=== PATIENT | female | born 2000 | race Caucasian/White ===

== ENCOUNTER → 2023-08-16 07:34 | Outpatient (REF) | payer OTHER, SELFPAY | LOC: PNTC 07:34 | PROVIDERS: ATTENDING PHYSICIAN Obstetrics & Gynecology | DX: O36.5990 Maternal care for other known or suspected poor fetal growth, unspecified trimester, not applicable or unspecified (principal); Q92 Other trisomies and partial trisomies of the autosomes, not elsewhere classified | CPT/HCPCS: 59025; 76818; 76820 ==

== ENCOUNTER → 2023-08-23 08:01 | Outpatient (REF) | payer OTHER, SELFPAY | LOC: PNTC 08:01 | PROVIDERS: ATTENDING PHYSICIAN Obstetrics & Gynecology | DX: Z36.0 Encounter for antenatal screening for chromosomal anomalies (principal) | CPT/HCPCS: 59025; 76816; 93976 ==

== ENCOUNTER → 2023-08-30 08:08 | Outpatient (REF) | payer OTHER, SELFPAY | LOC: PNTC 08:08 | PROVIDERS: ATTENDING PHYSICIAN Obstetrics & Gynecology | DX: Z36.0 Encounter for antenatal screening for chromosomal anomalies (principal); Z36.9 Encounter for antenatal screening, unspecified | CPT/HCPCS: 59025; 76815; 76820 ==

== ENCOUNTER → 2023-09-06 08:06 | Outpatient (REF) | payer OTHER, SELFPAY | LOC: PNTC 08:06 | PROVIDERS: ATTENDING PHYSICIAN Obstetrics & Gynecology | DX: O36.5990 Maternal care for other known or suspected poor fetal growth, unspecified trimester, not applicable or unspecified (principal); O99.210 Obesity complicating pregnancy, unspecified trimester | CPT/HCPCS: 59025; 76815; 76820 ==

== ENCOUNTER → 2023-09-13 08:04 | Outpatient (REF) | payer OTHER, SELFPAY | LOC: PNTC 08:04 | PROVIDERS: ATTENDING PHYSICIAN Obstetrics & Gynecology | DX: O30.039 Twin pregnancy, monochorionic/diamniotic, unspecified trimester (principal) | CPT/HCPCS: 59025; 76816; 76820 ==

== ENCOUNTER → 2023-09-20 08:05 | Outpatient (REF) | payer OTHER, SELFPAY | LOC: PNTC 08:05 | PROVIDERS: ATTENDING PHYSICIAN Obstetrics & Gynecology | DX: O99.210 Obesity complicating pregnancy, unspecified trimester (principal); O36.5990 Maternal care for other known or suspected poor fetal growth, unspecified trimester, not applicable or unspecified | CPT/HCPCS: 59025; 76815; 76820 ==

== ENCOUNTER → 2023-09-27 08:06 | Outpatient (REF) | payer OTHER, SELFPAY | LOC: PNTC 08:06 | PROVIDERS: ATTENDING PHYSICIAN Obstetrics & Gynecology | DX: O99.210 Obesity complicating pregnancy, unspecified trimester (principal); O36.5990 Maternal care for other known or suspected poor fetal growth, unspecified trimester, not applicable or unspecified; O36.8310 Maternal care for abnormalities of the fetal heart rate or rhythm, first trimester, not applicable or unspecified | CPT/HCPCS: 59025; 76816; 76820 ==

== ENCOUNTER → 2023-10-04 08:07 | Outpatient (REF) | payer OTHER, SELFPAY | LOC: PNTC 08:07 | PROVIDERS: ATTENDING PHYSICIAN Obstetrics & Gynecology | DX: O99.210 Obesity complicating pregnancy, unspecified trimester (principal); O36.5990 Maternal care for other known or suspected poor fetal growth, unspecified trimester, not applicable or unspecified | CPT/HCPCS: 59025; 76815; 76820 ==

== ENCOUNTER → 2023-10-11 08:07 | Outpatient (REF) | payer OTHER, SELFPAY | LOC: PNTC 08:07 | PROVIDERS: ATTENDING PHYSICIAN Obstetrics & Gynecology | DX: O36.5990 Maternal care for other known or suspected poor fetal growth, unspecified trimester, not applicable or unspecified (principal); O99.210 Obesity complicating pregnancy, unspecified trimester; O36.8310 Maternal care for abnormalities of the fetal heart rate or rhythm, first trimester, not applicable or unspecified | CPT/HCPCS: 59025; 76816; 76820 ==

== ENCOUNTER 2023-10-16 19:10 | Inpatient (IN) | payer OTHER, SELFPAY ==
[2023-10-16 19:40] VITALS: BMI 38.4
[2023-10-16 19:43] VITALS: BP 124/77
[2023-10-16 20:24] LABS: % Basophils 0.8 % (0-2); % Eosinophils 0.5 % (0-6); % Lymphocytes 24.9 % (20.5-51.1); % Monocytes 5.9 % (1.7-9.3); % Neutrophils 66.9 % (42.2-75.2); Absolute Basophils 0.1 10^3/uL (0-0.2); Absolute Eosinophils 0.1 10^3/uL (0-0.7); Absolute Immature Granulocytes 0.1 10^3/uL (0-0.05); Absolute Lymphocytes 3.1 10^3/uL (1.2-3.4); Absolute Monocytes 0.7 10^3/uL (0.1-0.6); Absolute Neutrophils 8.3 10^3/uL (1.4-6.5); Hematocrit 40.4 % (37.0-47.0); Hemoglobin 14.4 g/dL (12.0-16.0); Mean Corp Hgb Conc. 35.6 g/dL (33.0-37.0); Mean Corpuscular Hgb 31.6 pg (27.0-31.0); Mean Corpuscular Volume 88.6 fL (81.0-99.0); Mean Platelet Volume 10.5 fL (7.4-10.4); Nucleated Red Blood Cells % 0 %; Platelet Count 275 10^3/uL (130-400); Red Blood Cell Count 4.56 10^6/uL (4.20-5.40); Red Cell Dist. Width 13.8 % (11.5-14.5); White Blood Cell Count 12.4 10^3/uL (4.8-10.8)
[2023-10-16] MEDS: CYTOTEC 25 MICROGRAM VAG (20:26)
[2023-10-17] MEDS: CYTOTEC 50 MICROGRAM PO ×5 (00:28→23:34)
[2023-10-17] MEDS: CYTOTEC PO (04:46)
[2023-10-17] MEDS: BRETHINE 250 MCG SC (05:12)
[2023-10-17] MEDS: LR 1000 IV (19:22)
[2023-10-17] MEDS: MORPHINE SULFATE 2 MG IV (22:28)
[2023-10-18] MEDS: MORPHINE SULFATE 2 MG IV ×2 (02:39→04:16)
[2023-10-18] MEDS: PITOCIN 30 UNITS/NSS 500 ML IV (04:16)
[2023-10-18] MEDS: FENTANYL/BUPIVACAINE 100 EPIDURAL (06:13)
[2023-10-18] MEDS: SUBLIMAZE 100 MCG EPIDURAL (06:13)
[2023-10-18] MEDS: TYLENOL 1000 MG PO (11:54)
[2023-10-18] MEDS: BICITRA 30 ML PO (11:54)
[2023-10-18] MEDS: ZITHROMAX INFUSION 250 IV (11:56)
--- NOTE | 2023-10-18 13:31 | W.IMMPOSTOP ---
Surgical Immed Post Op Note
-
Primary Surgeon: Yesica Kwon DO
Assisting Surgeon: Sommer Zavaleta RN
Pre-op Diagnosis: IUP at 37+3wks, intolerance of labor, IUGR, +NIPS Trisomy 16
Post-op Diagnosis: Same as above
Procedure Performed: PLTCS
Anesthesia Type: epidural
Specimen / Cultures: placenta, cord gases, chromosome analysis POC (from placenta/cord tissue), cord blood for chromosome testing (2 tubes)
Estimated Blood Loss: 770ml
Complications: none
Operative Findings: female infant LOT, no nuchal cord, weight 3 lbs 9oz, Apgars 8/9. Clear amniotic fluid. Placenta small for GA, otherwise normal-appearing. 3-VC, with eccentric CI site. Normal appearing uterus, b/l tubes and ovaries.
[2023-10-18] MEDS: TORADOL 15 MG IV (19:24)
[2023-10-18] MEDS: FLUSH (NSS) 3 FLUSH IV (19:25)
[2023-10-18] MEDS: BENADRYL 25 MG IV (20:00)
[2023-10-18] MEDS: FLUSH (NSS) 2 FLUSH IV (20:04)
[2023-10-19] MEDS: TORADOL 15 MG IV ×3 (00:44→12:37)
[2023-10-19] MEDS: FLUSH (NSS) 3 FLUSH IV ×2 (00:45→06:33)
[2023-10-19 03:49] LABS: Hematocrit 37.4 % (37.0-47.0); Hemoglobin 13.1 g/dL (12.0-16.0); Mean Corpuscular Hgb 31.6 pg (27.0-31.0); Mean Corpuscular Volume 90.3 fL (81.0-99.0); Mean Platelet Volume 10.6 fL (7.4-10.4); Platelet Count 211 10^3/uL (130-400); Red Blood Cell Count 4.14 10^6/uL (4.20-5.40); Red Cell Dist. Width 13.8 % (11.5-14.5); White Blood Cell Count 18.7 10^3/uL (4.8-10.8)
[2023-10-19] MEDS: SENOKOT-S 1 TABLET PO (07:52)
[2023-10-19] MEDS: PRENATAL PLUS 1 TABLET PO (07:52)
--- NOTE | 2023-10-19 09:07 | W.PN.ANS.POP ---
Anesthesia Post Operative
- Anesthesia Post Op Note
Vital Signs Stable-See Nursing Note: Yes
Airway Patent: Yes
Adequate Pain Control: Yes
Change in Mental Status: No
Current Postoperative Nausea & Vomiting: No
Anesthesia Complications: No
General Anesthetic Recall: No
Unplanned Admission: No
Post Op Hydration Adequate: Yes
- -
Pt awake and alert,resting comfortably with no anesthesia r/t c/o at time of post op visit.
[2023-10-19] MEDS: TYLENOL 650 MG PO (18:51)
[2023-10-19] MEDS: MOTRIN 600 MG PO (18:51)
[2023-10-20] MEDS: TYLENOL 650 MG PO ×5 (00:09→19:32)
[2023-10-20] MEDS: MOTRIN 600 MG PO ×4 (00:49→19:33)
[2023-10-20] MEDS: PRENATAL PLUS 1 TABLET PO (07:14)
[2023-10-20] MEDS: SENOKOT-S 1 TABLET PO (07:14)
[2023-10-20 11:55] LABS: Syphilis/T. pallidum Ab Reflex Negative (Negative)
[2023-10-21] MEDS: TYLENOL 650 MG PO ×2 (02:05→09:05)
[2023-10-21] MEDS: MOTRIN 600 MG PO ×2 (02:05→09:05)
[2023-10-21] MEDS: PRENATAL PLUS 1 TABLET PO (09:04)
[2023-10-21] MEDS: SENOKOT-S 1 TABLET PO (09:04)
--- NOTE | 2023-10-21 11:20 | W.DS.TRANS ---
DC Summary - [employer]
-
Discharge Instructions:
Discharge Diagnosis/Procedures delivered by csection; growth
restriction
Diet Regular
Activity No strenuous activity
Driving Restrictions No driving for 2 weeks
Bathing Restrictions OK to Shower
Instructions:
Stand-Alone Forms: LDRP Delivery
Changes to Home Medications: No
Discharge Medications:
DC Medications w/original date entered in [employer]
[id number] 1 mg tablet 1 tab PO DAILY Supplement 10/16/23
acetaminophen 325 mg tablet 650 mg (2 x 325 mg) PO Q4HPRN PRN mild pain #0 tabs 10/21/23
ibuprofen 600 mg tablet 600 mg PO Q6HPRN PRN cramps #0 tabs 10/21/23
Home Medication Changes
Pending Results: Yes
Additional Pending Results:
pathology placenta
Total time spent discharging patient (in min): 30
== END 2023-10-21 14:58 | disposition home or self-care (01) | DRG 788 ==
LOC: LDRP 19:10
PROVIDERS: Obstetrics & Gynecology; ADMITTING PHYSICIAN Obstetrics & Gynecology
PROC: 3E0P7VZ Introduction of Hormone into Female Reproductive, Via Natural or Artificial Opening (ICD-10-PCS; 2023-10-16)
PROC: 3E0DXGC Introduction of Other Therapeutic Substance into Mouth and Pharynx, External Approach (ICD-10-PCS; 2023-10-17)
PROC: 10D00Z1 Extraction of Products of Conception, Low, Open Approach (ICD-10-PCS; 2023-10-18)
DX: O36.5930 Maternal care for other known or suspected poor fetal growth, third trimester, not applicable or unspecified (principal); Z3A.37 37 weeks gestation of pregnancy; Z37.0 Single live birth; O76 Abnormality in fetal heart rate and rhythm complicating labor and delivery; Z88.0 Allergy status to penicillin; Z91.048 Other nonmedicinal substance allergy status; O35.19X0 Maternal care for (suspected) chromosomal abnormality in fetus, other chromosomal abnormality, not applicable or unspecified; R60.9 Edema, unspecified
CPT/HCPCS: 88307; 36415; 85025; 85027; 86780; 86850; 86900; 86901